=== PATIENT | male | born 2000 | race African-American/Black ===

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

== ENCOUNTER 2020-03-16 09:12 | Emergency (ER) | payer MEDICAID ==
[~2020-03-16] VITALS: Ht 188 cm; Wt 81.8 kg
--- NOTE | 2020-03-16 09:57 | NUR ---
pt has been requesting a bed. he is aware that we do not have a bed available for him at this time. also he is stating he will lay on the ground if he has to sit in the chair much longer. informed him that he is breathing fast and this is the cause of many of his symptoms. informed LEYDA Cruz aware of pt's symptoms and what he is stating. now he is talking with pt and assessing him
[2020-03-16] MEDS ORDERED: normal saline 1000ML IV soln IVB ONE ×2 (10:05→11:30)
--- NOTE | 2020-03-16 10:35 | NUR ---
PT. MOVED TO ROOM 5. PT. PLACED IN DROPLET PRECAUTIONS
[2020-03-16 10:44] LABS: BASOPHILS # (AUTO) 0.1 X10'3 (0-0.2); EOSINOPHILS % (AUTO) 0 % (0-6); HEMOGLOBIN 15.7 g/dl (14.0-17.9); LYMPHOCYTES # (AUTO) 1.1 X10'3 (1.1-4.8); LYMPHOCYTES % (AUTO) 17.4 % (21-51); MEAN CORPUSCULAR HEMOGLOBIN 28.3 PG (27.0-31.0); MEAN CORPUSCULAR HGB CONC 33.3 g/dL (33.0-36.5); MEAN CORPUSCULAR VOLUME 84.9 FL (78-98); MEAN PLATELET VOLUME 9.1 FL (7.4-10.4); MONOCYTES # (AUTO) 0.3 X10'3 (0-0.9); MONOCYTES % (AUTO) 5.3 % (2-12); NEUTROPHILS # (AUTO) 4.9 X10'3 (1.8-7.7); NEUTROPHILS % (AUTO) 76.3 % (42-75); PLATELET COUNT 147 X10'3 (140-440); RED BLOOD COUNT 5.54 X10'6 (4.70-6.10); RED CELL DISTRIBUTION WIDTH 13.1 % (11.5-14.5); WHITE BLOOD COUNT 6.4 X10'3 (4.5-11.0)
[2020-03-16 10:54] LABS: CLARITY,URINE CLOUDY (Clear); COLOR,URINE YELLOW (Yellow); GLUCOSE, URINE NEGATIVE (Neg); KETONES,URINE 15 mg/dl (Neg); LEUKOCYTE ESTERASE ,URINE LARGE (Neg); NITRITES, URINE NEGATIVE (Neg); OCCULT BLOOD,URINE MODERATE (Neg); PH,URINE >=9.0 (4.8-8.0); PROTEIN,URINE TRACE mg/dl (Neg)
[2020-03-16 10:56] LABS: ALANINE AMINOTRANSFERASE 19 U/L (12-78); ALBUMIN/GLOBULIN RATIO 1.1 (1.1-1.5); ALKALINE PHOSPHATASE 72 IU/L (46-116); ANION GAP 8 (8-16); ASPARTATE AMINO TRANSFERASE 19 U/L (10-37); BILIRUBIN,TOTAL 0.4 MG/DL (0.1-1.0); BLOOD UREA NITROGEN 7 MG/DL (7-18); BUN/CREATININE RATIO 6.2 (5.4-32.0); CALCIUM 8.5 MG/DL (8.5-10.1); CHLORIDE 102 MMOL/L (99-107); CREATININE 1.13 MG/DL (0.60-1.10); GLUCOSE 121 MG/DL (70-104); POTASSIUM 3.1 MMOL/L (3.5-5.1); SODIUM 134 MMOL/L (135-145); TOTAL CARBON DIOXIDE 24.3 MMOL/L (24-32); TOTAL PROTEIN 7.7 G/DL (6.4-8.2); eGFR > 90 ML/MIN
[2020-03-16 10:58] LABS: UA COLLECTION TYPE CLN CATCH MIDSTREAM
[2020-03-16 11:00] LABS: SQUAMOUS EPITHELIAL CELL,UR FEW /LPF (FEW)
[2020-03-16 11:01] LABS: WBC,URINE TNTC /HPF (0-4)
[2020-03-16 11:02] LABS: BACTERIA,URINE FEW /HPF (Neg); RBC,URINE 20-50 /HPF (0-2)
[2020-03-16] MEDS ORDERED: CefTRIAXone/D5W-Rocephin 1gm 50 ML IV ONE (11:30)
[2020-03-16] MEDS ORDERED: azithromycin 250mg tablet PO ONE (11:30)
--- NOTE | 2020-03-16 12:00 | NUR ---
Patient is resting comfortably with no obvious signs of distress.
[2020-03-16 12:11] LABS: URINE AMPHETAMINE SCREEN NEGATIVE (Neg); URINE BARBITUATE SCREEN NEGATIVE (Neg); URINE BENZODIAZEPINES SCREEN NEGATIVE (Neg); URINE CANNABINOID SCREEN POSITIVE (Neg); URINE COCAINE SCREEN NEGATIVE (Neg); URINE METHADONE SCREEN NEGATIVE (Neg); URINE OPIATE SCREEN NEGATIVE (Neg); URINE PHENCYCLIDINE SCREEN NEGATIVE (Neg)
[2020-03-16] MEDS ORDERED: SULF1TAB49 PO (12:26)
[2020-03-16] MEDS ORDERED: PHEN-824 PO (12:26)
[2020-03-16 12:46] VITALS: BP 122/56
== END 2020-03-16 12:47 | disposition home or self-care (01) ==
LOC: ER 09:12
DX: N39.0 Urinary tract infection, site not specified (principal); R42 Dizziness and giddiness; R20.0 Anesthesia of skin; Z79.2 Long term (current) use of antibiotics; Z79.899 Other long term (current) drug therapy
CPT/HCPCS: 36415; 80053; 80305; 81001; 84145; 85025; 87088; 87491; 87591; 96361; 96365; 99285; J0696; J7030

== ENCOUNTER 2020-04-24 20:55 | Emergency (ER) | payer MEDICAID ==
[~2020-04-24] VITALS: Ht 188 cm; Wt 97.6 kg
[~2020-04-24 20:55] MED LIST changes: +PHEN-824 PO
[2020-04-24 21:02] VITALS: BP 117/70
[2020-04-24] MEDS ORDERED: metroNIDAZOLE 500mg tablet PO ONE (21:15)
[2020-04-24] MEDS ORDERED: azithromycin 250mg tablet PO ONE (21:15)
[2020-04-24] MEDS ORDERED: CefTRIAXone 1000mg IM Kit (w/lidocaine diluent) IM ONE (21:15)
[2020-04-24 21:45] LABS: CLARITY,URINE CLOUDY (Clear); COLOR,URINE YELLOW (Yellow); GLUCOSE, URINE NEGATIVE (Neg); KETONES,URINE NEGATIVE (Neg); LEUKOCYTE ESTERASE ,URINE LARGE (Neg); NITRITES, URINE NEGATIVE (Neg); OCCULT BLOOD,URINE MODERATE (Neg); PH,URINE 7.5 (4.8-8.0); PROTEIN,URINE NEGATIVE (Neg); UROBILINOGEN,URINE 0.2 E.U/dL (0.2-1.0)
[2020-04-24 21:48] LABS: UA COLLECTION TYPE NON-SPECIFIED
[2020-04-24 21:50] LABS: WBC,URINE TNTC /HPF (0-4)
[2020-04-24 21:51] LABS: BACTERIA,URINE 4+ /HPF (Neg); SQUAMOUS EPITHELIAL CELL,UR FEW /LPF (FEW)
== END 2020-04-24 22:10 | disposition home or self-care (01) ==
LOC: ER 20:56
DX: R30.0 Dysuria (principal); R82.81 Pyuria; Z79.899 Other long term (current) drug therapy
CPT/HCPCS: 36415; 81001; 87088; 87491; 87591; 96372; 99283; J0696; J3490